=== PATIENT | female | born 1960 | race Caucasian/White ===

== ENCOUNTER 2020-02-22 11:48 | Emergency (ER) | payer SELFPAY ==
[~2020-02-22] VITALS: Ht 167.6 cm; Wt 83.9 kg
--- NOTE | 2020-02-22 19:09 | EKG ---
[facility] [address] [facility] [place] [address] Signed Normal sinus rhythm Minimal voltage criteria for LVH, may be normal variant Inferior infarct , age undetermined Anterior infarct , age undetermined Abnormal ECG No previous ECGs available Confirmed by MAYURI RODRIGUEZ MD ([id number] on 02/22/2020 7:08:54 PM Electronically Signed By: MAYURI RODRIGUEZ MD 02/22/20 1909 PATIENT NAME: [id number] Electrocardiogram DATE OF : 64 PHYSICIAN: MAYURI RODRIGUEZ MD REPORT #: [id number] REPORT IS CONFIDENTIAL AND NOT TO BE RELEASED WITHOUT AUTHORIZATION
== END 2020-02-22 14:14 | disposition home or self-care (01) ==
LOC: ED 11:48
DX: R07.9 Chest pain, unspecified (principal); I25.10 Atherosclerotic heart disease of native coronary artery without angina pectoris; E11.9 Type 2 diabetes mellitus without complications; I10 Essential (primary) hypertension
CPT/HCPCS: 71045; 80053; 83735; 84484; 85025; 93005; 93010; 99285-25